=== PATIENT | female | born 1980 | race American Indian/Alaskan Native ===

== ENCOUNTER 2017-01-22 11:16 | Emergency (ER) | payer SELFPAY ==
[2017-01-22 12:00] VITALS: BP 120/71
--- NOTE | 2017-01-22 14:10 | XRay Report ---
RIGHT KNEE, 2 views: History: Right knee swelling and pain. The bony architecture is intact without evidence of fracture or dislocation. No significant soft tissue abnormality is seen. IMPRESSION: Unremarkable right knee.
--- NOTE | 2017-01-22 14:39 | Emergency Department Report ---
ED Extremity Problem HPI - General Chief complaint: Extremity Injury, Lower Stated complaint: RT KNEE PAIN Time Seen by Provider: 01/22/17 14:22 Source: patient Mode of arrival: Ambulatory Limitations: No Limitations - History of Present Illness Initial comments: PT c/o R knee pain x 2 weeks. PT states her knee feels heavy/ swollen. PT states when she walks, she feels popping. Worse when going up or down stairs. PT denies injury or trauma. 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 Complaint: joint paint Onset/Timin -: week(s) Location: right History of Same: No Severity scale (0 -10): 5 Quality: aching, constant Consistency: constant Improves with: medication (Naprosyn ) Worsens with: weight bearing, walking, other (bending ) - Related Data Allergies Allergy/AdvReac Type Severity Reaction Status Date / Time No Known Allergies Allergy Unverified 01/22/17 11:59 ED Review of Systems ROS: Stated complaint: RT KNEE PAIN Other details as noted in HPI Comment: All other systems reviewed and negative Constitutional: denies: chills, fever Gastrointestinal: denies: abdominal pain Genitourinary: denies: abnormal menses Musculoskeletal: as per HPI Skin: denies: rash ED Past Medical Hx - Past Medical History Hx Diabetes: Yes - Surgical History Additional Surgical History: lung bx-pnuemonia 2010,3 C-Sections - Social History Smoking Status: Never Smoker Substance Use Type: None ED Physical Exam - General Limitations: No Limitations General appearance: alert, in no apparent distress - Head Head exam: Present: atraumatic, normocephalic - Eye Eye exam: Present: normal appearance, PERRL. Absent: conjunctival injection - ENT ENT exam: Present: normal exam, normal external ear exam - Neck Neck exam: Present: normal inspection, full ROM - Respiratory Respiratory exam: Present: normal lung sounds bilaterally. Absent: respiratory distress, wheezes - Cardiovascular Cardiovascular Exam: Present: regular rate, normal rhythm, normal heart sounds - GI/Abdominal GI/Abdominal exam: Present: soft. Absent: tenderness - Extremities Exam Extremities exam: Present: normal inspection, full ROM. Absent: tenderness, pedal edema, calf tenderness - Expanded Lower Extremity Exam Right Knee exam: Present: normal inspection, full ROM, crepidus, full knee extension. Absent: tenderness, ecchymosis, deformity, dislocation, erythema - Back Exam Back exam: Present: normal inspection, full ROM, tenderness, CVA tenderness (R) - Neurological Exam Neurological exam: Present: alert, oriented X3 - Psychiatric Psychiatric exam: Present: normal affect, normal mood - Skin Skin exam: Present: warm, dry, intact, normal color ED Course Vital Signs 01/22/17 11:57 Temperature 99 F Pulse Rate 72 Respiratory 18 Rate Blood Pressure 120/71 O2 Sat by Pulse 100 Oximetry - Reevaluation(s) Reevaluation #1: 01/22/17 14:35 PT aware of XR results. PT aware of plan of care. PT does not have questions at this time. - Pulse Oximetry Interpretation Digit-Finger Initial Pulse Oximetry Readin Actions Taken: none ED Medical Decision Making - Differential Diagnosis strain, OA, effusion Critical Care Time: No Critical care attestation.: If time is entered above; I have spent that time in minutes in the direct care of this critically ill patient, excluding procedure time. ED Disposition Clinical Impression: Crepitus of joint of right knee Right knee pain Qualifiers: Chronicity: acute Qualified Code(s): M25.561 - Pain in right knee Disposition: DISCHARGED TO HOME OR SELFCARE Is pt being admited?: No Does the pt Need Aspirin: No Condition: Stable Instructions: Knee Sprain (ED), Knee Pain (ED), Knee Immobilizer (ED), RICE Therapy (ED) Additional Instructions: No driving or ETOH after taking Tylenol #3 Referrals: PRIMARY MD [place] [Primary Care Provider] - 3-5 Days MONIKA HALL MD [Staff Physician] - 3-5 Days [facility] [Outside] - 3-5 Days [facility] [Outside] - 3-5 Days Time of Disposition: 14:37
== END 2017-01-22 14:56 | disposition home or self-care (01) ==
LOC: EDBD → ED 11:16
DX: M23.8X1 Other internal derangements of right knee (principal); M25.561 Pain in right knee; E11.9 Type 2 diabetes mellitus without complications; X58.XXXA Exposure to other specified factors, initial encounter; Y93.89 Activity, other specified; Y92.59 Other trade areas as the place of occurrence of the external cause; Y99.0 Civilian activity done for income or pay
CPT/HCPCS: 81025